=== PATIENT | male | born 1980 | race Caucasian/White ===

== ENCOUNTER 2021-02-28 22:44 | Emergency (ER) | payer BC, OTHER ==
--- NOTE | 2021-02-28 23:27 | EDM.PDOC ---
ED HPI GENERAL MEDICAL PROBLEM - General Chief Complaint: Cardiovascular Problem Stated Complaint: sensation in chest Time Seen by Provider: 02/28/21 23:05 Source of Information: Reports: Patient History Limitations: Reports: No Limitations - History of Present Illness INITIAL COMMENTS - FREE TEXT/NARRATIVE: Patient presents to the ED for a sensation in his chest that has been going on for several days. He denies any recnet illness, injury, chest trauma, travel, tick or bug bite. He is a local [employer] and did some spraying a day or so before this started but was in an enclosed cab with ventilation at the time. States that he mainly notices this sensation in the mid substernal area when he is laying down and reading at night . He states it is a " fluttering" or "Gurlgi ng" in the direct central substernal chest without significant pain or discomfort but the sensation is troubling to him. No cough or fever. Has not had Covid, lives locally, family is well. Does not smoke. Denies any reflux symptoms. NO drugs or alcohol. Duration: Day(s):, Intermittent Location: Reports: Chest (mid sternal) Severity: Mild Associated Symptoms: Reports: No Other Symptoms Social & Family History - Tobacco Use Tobacco Use Status *Q: Never Tobacco User Second Hand Smoke Exposure: No - Alcohol Use Alcohol Use History: No Alcohol Use in Last Twelve Months: No - Recreational Drug Use Recreational Drug Use: No Drug Use in Last 12 Months: No - Living Situation & Occupation Living situation: Reports: Occupation: Employed ([employer]) ED ROS GENERAL - Review of Systems Review Of Systems: See Below Constitutional: Reports: No Symptoms. Denies: Fever, Chills, Fatigue HEENT: Reports: No Symptoms. Denies: Ear Discharge, Eye Pain, Rhinitis, Sinus Problem, Throat Pain, Throat Swelling, Vertigo Respiratory: Reports: No Symptoms. Denies: Shortness of Breath, Cough Cardiovascular: Reports: Palpitations (mid substernal sensation worse with laying down) GI/Abdominal: Reports: No Symptoms. Denies: Abdominal Pain, Decreased Appetite, Nausea, Vomiting : Reports: No Symptoms. Denies: Dysuria, Frequency, Urgency Musculoskeletal: Reports: No Symptoms. Denies: Neck Pain, Arm Pain, Leg Pain, Muscle Pain Skin: Reports: No Symptoms. Denies: Cyanosis, Jaundice, Rash Neurological: Reports: No Symptoms Psychiatric: Reports: No Symptoms Hematologic/Lymphatic: Reports: No Symptoms Immunologic: Reports: No Symptoms ED EXAM, GENERAL - Physical Exam Exam: See Below Exam Limited By: No Limitations General Appearance: Alert, WD/WN, No Apparent Distress. No: Anxious Eye Exam: Bilateral Eye: EOMI, Nystagmus, PERRL Nose: Normal Inspection Throat/Mouth: Normal Inspection, Normal Lips, Normal Teeth, Normal Voice, No Airway Compromise Head: Atraumatic, Normocephalic. No: Sinus Tenderness Neck: Normal Inspection, Supple, Non-Tender, Full Range of Motion. No: Carotid Bruit, Lymphadenopathy (L), Lymphadenopathy (R) Respiratory/Chest: No Respiratory Distress, Lungs Clear, Normal Breath Sounds, No Accessory Muscle Use, Other. No: Decreased Breath Sounds, Crackles, Wheezing, Prolonged Expiration Cardiovascular: Normal Peripheral Pulses, Regular Rate, Rhythm, Other (some reproducible pain to palpation of the SC rib junctions on the rigth of the sternum. No lesions or rashes. no crepitus. No change in sensation of pain with leaning forward. No left chest pain to palpation). No: No Edema, No JVD, No Murmur, No Rub GI/Abdominal: Normal Bowel Sounds, Soft, Non-Tender, No Organomegaly, No Distention. No: Rigid, Rebound, Abnormal Bowel Sounds Back Exam: Normal Inspection, Full Range of Motion. No: CVA Tenderness (L), CVA Tenderness (R), Decreased Range of Motion Extremities: Normal Inspection, Normal Range of Motion, Non-Tender, No Pedal Edema, Normal Capillary Refill Neurological: Alert, Oriented, CN II-XII Intact, Normal Cognition, Normal Gait, Normal Reflexes, No Motor/Sensory Deficits Psychiatric: Normal Affect Skin Exam: Warm #1 Interpretation EKG Date: 02/28/21 Time: 10:57 Rhythm: NSR [place]: Normal P-Wave: Present QRS: Normal ST-T: Elevated (consistent with early repolarization and normal for age) Comparison: NA - No Prior EKG EKG Interpretation Comments: PAC noted, occasional Course - Vital Signs Last Recorded V/S: Last Vital Signs Temp 36.6 C 02/28/21 23:00 Pulse 67 02/28/21 23:00 Resp 18 02/28/21 23:00 BP 129/71 02/28/21 23:00 Pulse Ox 97 02/28/21 23:00 - Orders/Labs/Meds Orders: Active Orders 24 hr Category Date Time Status Chest 2V [CR] Stat Exams 03/01/21 00:02 Taken Labs: Laboratory Tests 02/28/21 02/28/21 02/28/21 Range/Units 23:16 23:16 23:16 WBC 5.1 (4.0-10.0) x10^3/uL RBC 4.85 (4.5-6.0) x10^6/uL Hgb 15.9 (14.0-18.0) g/dL Hct 42.7 (40.0-52.0) % MCV 88.0 (78.0-93.0) fL MCH 32.8 H (26.0-32.0) pg MCHC 37.2 H (32.0-36.0) g/dL RDW Coeff of Shayy 11.9 (10.0-15.0) % Plt Count 188 (130-400) x10^3/uL Neut % (Auto) 46.1 L (50.0-80.0) % Lymph % (Auto) 41.1 (25.0-50.0) % [place] % (Auto) 9.4 (2.0-11.0) % Eos % (Auto) 2.8 (0.0-4.0) % Baso % (Auto) 0.6 (0.2-1.2) % ESR 3 (0-15) mm/hr D-Dimer, Quantitative < 0.19 (<=0.58) mg/LFEU Sodium 140 (136-145) mmol/L Potassium 3.3 L (3.5-5.1) mmol/L Chloride 102 (98-107) mmol/L Carbon Dioxide 30 (21-32) mmol/L Anion Gap 11.3 (5-15) mmol/L BUN 15 (7-18) mg/dL Creatinine 1.2 (0.70-1.30) mg/dL Est Cr Clr Drug Dosing 90.71 mL/min Estimated GFR (MDRD) > 60 Glucose 107 H (70-99) mg/dL Calcium 8.4 L (8.5-10.1) mg/dL Corrected Calcium 8.6 (8.5-10.1) mg/dL Total Bilirubin 0.6 (0.2-1.0) mg/dL AST 28 (15-37) U/L ALT 55 (16-63) U/L Alkaline Phosphatase 79 (46-116) U/L Troponin I High Sens < 4 (<=76) ng/L Total Protein 7.2 (6.4-8.2) g/dL Albumin 3.8 (3.4-5.0) g/dL Globulin 3.4 Albumin/Globulin Ratio 1.12 Lipase 138 (73-393) U/L TSH, Ultra Sensitive 2.085 (0.358-3.74) uIU/mL Meds: Medications Discontinued Medications Generic Name Dose Route Start Last Admin Trade Name Freq PRN Reason Stop Dose Admin Potassium Chloride 40 meq 02/28/21 23:52 03/01/21 00:02 Potassium Chloride 10 Meq Tab.Er PO 02/28/21 23:53 40 meq ONETIME ONE Administration Potassium Chloride Confirm 03/01/21 00:16 Potassium Chloride 10 Meq Tab.Er Administered 03/01/21 00:17 Dose 10 meq .ROUTE .K-MED ONE - Radiology Interpretation Free Text/Narrative:: preliminary read, no acute, chest x-ray no acute interpreted by radiology - Re-Assessments/Exams Free Text/Narrative Re-Assessment/Exam: 02/28/21 23:35 Patient is not in an distress. EKg without any concerning findings. Will check some labs. If normal chest x-ray, if inflammatory markers elevated or increased d dimer will get chest CT. 03/01/21 00:00 Testing has normal labs for ddimer, trop, tsh, sed rate, wbc and hemoglobin slight decrease in potassium probably atributted to work ing out in the heat. Will give a dose of potassium 40 meq po. Discussed potatoes, orange juice, bananas etc. Will check chest x-ray two view. Discussed possibility of reflux. ADvised no eating or drinking at least 2 hours prior to laying down. starting an acid reducing medication for two weeks. If not improvement or worsening, follow up with PCP for possible further intervention or imaging. Departure - Departure Time of Disposition: 00:20 Disposition: Home, Self-Care 01 Clinical Impression: Chest discomfort, Hypokalemia Instructions: Hypokalemia, Nonspecific Chest Pain, Adult, [id number], Gastroesophageal Reflux Disease, Adult, [id number] Referrals: PCP,None [Primary Care Provider] - Forms: ED Department Discharge Additional Instructions: Testing today revealed a normal white blood cell count, normal thyroid hormone, negative heart attack enzymes, negative blood clot enzymes, normal sed rate ( inflammatory marker), normal hemoglobin. This would rule out infection, anemia, heart attack, thyroid problems, blood clot. EKG was without changes. Chest x- ray without mass or pneumonia. It was suggested to you to increase the potassium in your diet as this was marginally low, and you were given a potassium supplement. Increase potassium rich food, especially when working in the heat. It is unknown what is causing the sensation in the chest. Start an acid reducing medication, taken in the evening like pepcid or prilosec available over the counter. Take for two weeks. Avoid eating or drinking at least two hours prior to laying down at night. If the sensation does not improve, follow up with your PCP for further imaging studies and or possible scope of the stomach ( EGD). Sepsis Event Note (ED) - Focused Exam Vital Signs: Vital Signs Temp Pulse Resp BP Pulse Ox 02/28/21 23:00 36.6 C 67 18 129/71 97 - My Orders Last 24 Hours: My Active Orders 03/01/21 00:02 Chest 2V [CR] Stat - Assessment/Plan Last 24 Hours: My Active Orders 03/01/21 00:02 Chest 2V [CR] Stat
[2021-02-28 23:46] LABS: CHLORIDE,CL 102 mmol/L (98-107); SODIUM,NA 140 mmol/L (136-145)
[2021-02-28 23:47] LABS: ANION GAP 11.3 mmol/L (5-15)
[2021-02-28] MEDS ORDERED: Potassium Chloride 10 MEQ Tab.ER PO ONE (23:52)
[2021-03-01] MEDS ORDERED: Potassium Chloride 10 MEQ Tab.ER ONE (00:16)
--- NOTE | 2021-03-01 09:46 | CR ---
[id number] RAD/RAD Chest PA And Lateral EXAM: FRONTAL AND LATERAL CHEST INDICATION: CHEST TIGHTNESS. COMPARISON: None. DISCUSSION: The heart and lungs are normal in appearance. IMPRESSION: 1. Negative exam. Peter Mancuso MD 03/01/21 0945 Thank you for allowing us to participate in the care of your patient.
== END 2021-03-01 00:30 | disposition home or self-care (01) ==
LOC: VM.ED 22:44
DX: R07.89 Other chest pain (principal); E87.6 Hypokalemia; R07.2 Precordial pain; I49.1 Atrial premature depolarization
CPT/HCPCS: 36415; 71046; 80053; 83690; 84443; 84484; 85025; 85379; 85652; 93005; 93010; 99284; 99285-25; A9270-GY